=== PATIENT | male | born 1990 | race Caucasian/White ===

== ENCOUNTER 2020-06-23 19:45 | Emergency (ER) | payer OTHER ==
[~2020-06-23] VITALS: Ht 172.7 cm; Wt 81.6 kg
[2020-06-23 19:53] VITALS: BP_SYST 127
[2020-06-23] MEDS ORDERED: IBUP-1971 PO (21:15)
[2020-06-23] MEDS ORDERED: HYDR-3917 PO (21:15)
[2020-06-23 21:21] VITALS: BP_SYST 122
== END 2020-06-23 21:33 | disposition home or self-care (01) ==
LOC: SED 19:45
DX: R07.89 Other chest pain (principal)
CPT/HCPCS: 93005; 99283